=== PATIENT | female | born 1940 | race Caucasian/White ===

== ENCOUNTER 2017-10-14 13:00 | Emergency (ER) | payer OTHER ==
[~2017-10-14] VITALS: Ht 170.1 cm; Wt 97.5 kg
[~2017-10-14 13:00] MED LIST: ARTANE PO; ATOXIMETIN-B1 CAP PO; BAYER ASPIRIN C81 MG PO; MIRALAX POWDER17 G1 PO; MOBIC7.5 MG PO; NEURONTIN300 MG PO; PAXIL40 MG PO; PRILOSEC40 MG PO; SINEMET CR 50 M1 TE1 PO; SYNTHROID,LEV100 MCG PO; ZESTRIL20 MG PO
== END 2017-10-14 16:49 | disposition home or self-care (01) ==
LOC: ED 13:00
DX: K59.00 Constipation, unspecified (principal); Z88.1 Allergy status to other antibiotic agents; Z79.01 Long term (current) use of anticoagulants

== ENCOUNTER 2019-07-03 11:14 | Inpatient (IN) | payer OTHER ==
[~2019-07-03] VITALS: Ht 162.5 cm; Wt 78.2 kg
--- NOTE | ~2019-07-03 | CON ---
[place], [place] REPORT OF CONSULTATION NAME[id number] UNIT #: [id number] ROOM: 419 DOCTOR: LINH LICONA DPM BIRTHDATE: [birth year] DOS: 07/04/2019 SUBJECTIVE: This patient is seen for evaluation of multiple wounds on both feet. The patient was seen by Wound Care. The patient does not answer questions. She has altered mental status at this time. PAST MEDICAL HISTORY: Positive for chronic pain, hypertension, hypothyroidism, neuropathy, Parkinson's disease, dementia. ALLERGIES: COUMADIN, AMPICILLIN and FLAGYL. CURRENT MEDICATIONS: Include Zoloft, Paxil, Zestril, Lovenox, Wellbutrin, Prilosec, Synthroid, Artane, Seroquel, Neurontin, Comtan, Sinemet, Rocephin, and Restoril. OBJECTIVE: Upon lower extremity physical examination, DP and PT pedal pulses are barely palpable. There is decreased hair growth noted. Skin is thin and shiny. Very mild dependent edema noted bilaterally. Negative Homans sign noted. Sensation appears to be grossly intact and symmetrical. There are multiple superficial open areas noted on both feet. She has a wound on the right second toe, lateral right foot, as well as left first toe. These are all very superficial with some dry skin noted in the area. There is a wound noted dorsal left second toe that is full thickness with no signs of infection. There is no edema or erythema about the toe. No purulent drainage or malodor, no signs of abscess. Vascular studies are pending. X-ray is pending. ASSESSMENT: Multiple ulcerations bilaterally, peripheral artery disease. PLAN: Consult is performed. Agree with wound care recommendations, do daily dressing changes, offload appropriately. We will continue to monitor and follow while in the hospital. We will check and see how her studies come back. Thank you for the opportunity to take part in care of this patient. LINH MARILYN LICONA CM:CONSTR:REPORT OF CONSULTATION 1149 07/04/19 5200 interface
--- NOTE | ~2019-07-03 | EKG ---
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
[2019-07-03 11:16] VITALS: BP 109/44
--- NOTE | 2019-07-03 11:31 | NUR ---
PATIENT STRAIGHT CATHED FOR URINE SPECIMEN. PATIENT HAD ABOUT 300ML OF URINE OUTPUT WITH STRONG ODOR AND DARK SHAYNA COLORED URINE.
[2019-07-03 11:32] LABS: BILIRUBIN NEGATIVE (NEGATIVE); BLOOD NEGATIVE (NEGATIVE); CLARITY CLOUDY (CLEAR); COLOR YELLOW (YELLOW); GLUCOSE NEGATIVE (NEGATIVE); KETONE NEGATIVE (NEGATIVE); LEUKO ESTERASE TRACE (NEGATIVE); NITRITE POSITIVE (NEGATIVE); UROBILINOGEN 0.2 E.U./dl (0.2-1.0)
[2019-07-03 11:49] LABS: BACTERIA 4+; WBC 31-40 wbc/hpf (0-5)
[2019-07-03 11:49] LABS: BASO # 0.1 10*3/uL (0.0-0.1); BASO % 0.8 % (0.0-1.0); EOS # 0.2 10*3/uL (0.0-0.4); HEMATOCRIT 39.3 % (37.0-47.0); HEMOGLOBIN 12.3 g/dl (12.0-16.0); LYMPH # 1.3 10*3/uL (1.3-4.4); LYMPH % 17.9 % (27.0-41.0); MEAN CELL VOLUME 86.6 fl (81.0-99.0); MEAN CORPUSCULAR HGB 27.1 pg (27.0-31.0); MEAN CORPUSCULAR HGB CONC 31.3 g/dl (33.0-37.0); MONO # 0.8 10*3/uL (0.1-1.0); MONO % 10.7 % (3.0-9.0); NEUT % 68.5 % (47.0-73.0); PLATELET COUNT AUTOMATED 220 10*3/uL (130-400); RED BLOOD COUNT 4.54 10*6/uL (4.10-5.10); RED CELL DISTRI WIDTH 17.8 % (0-14.5); WHITE BLOOD COUNT 7.4 10*3/uL (4.8-10.8)
[2019-07-03 12:06] LABS: ALBUMIN 3.1 gm/dl (3.1-4.5); ALKALINE PHOSPHATASE 180 U/L (45-117); BUN 15 mg/dl (7-24); CHLORIDE 105 mmol/L (98-107); CREATININE 1.07 mg/dL (0.55-1.02); SGOT/AST 24 IU/L (3-35); SGPT/ALT 9 U/L (12-78); SODIUM 140 mmol/L (136-145); TOTAL PROTEIN 7.4 gm/dL (6.4-8.2)
[2019-07-03 12:08] LABS: TROPONIN I < 0.015 ng/ml (<0.045)
--- NOTE | 2019-07-03 15:00 | NUR ---
A 78, admitted to , under the services of QUYNH Reyes DO with a diagnosis of UTI. Chief complaint is MENTAL STATUS CHANGE, UTI. Patient arrived via stretcher from ER. Monitor applied. Initial assessment completed. Vital signs taken and recorded. QUYNH REYES DO notified of admission to the unit. Orders received. See assessment for past medical history, medications and allergies. Patient and/or family oriented to unit. [address] visitation policy reviewed. Clothing/patient valuable form completed. JUSTINO CASE
--- NOTE | 2019-07-03 15:30 | NUR ---
PT VERY COMBATIVE AT THIS TIME, KICKING AND PUNCHING. THIS NURSE UNABLE TO ASSESS LEFT 2ND TOE WOUND AT THIS TIME. BANDAID IN PLACE
--- NOTE | 2019-07-03 15:56 | NUR ---
[facility] CALLED MED REC TO BE FAXED.
[2019-07-03 16:00] VITALS: BP 136/66
--- NOTE | 2019-07-03 16:02 | NUR ---
DR RUSS NOTIFIED ABOUT PT REFUSAL OF WEARING MONITOR AND BEING VERY COMBATIVE DURING ADMISSION PROCESS. PT NOW SLEEPING IN BED. MOVED TO PRIVATE ROOM CLOSER TO THE NURSES STATION. BED ALARM ON. WILL MONITOR.
--- NOTE | 2019-07-03 16:20 | NUR ---
PT REFUSES THE FLU VACCINE
--- NOTE | 2019-07-03 16:35 | NUR ---
PER PT . PT HAVE [facility]
[2019-07-03] MEDS ORDERED: LEVOXYL112 MCG PO (16:38)
[2019-07-03] MEDS ORDERED: K-TAB10 MEQ PO (16:39)
[2019-07-03] MEDS ORDERED: CARBIDOPA-LEVO1 EAC2 PO (16:40)
[2019-07-03] MEDS ORDERED: ZOLOFT50 MG PO (16:41)
[2019-07-03] MEDS ORDERED: SEROQUEL25 MG PO (16:42)
[2019-07-03] MEDS ORDERED: BUPROPION75 MG PO (16:44)
--- NOTE | 2019-07-03 16:47 | NUR ---
MED REC UPDATED PER FAX FROM [facility]. DR RUSS NOTIFIED.
--- NOTE | 2019-07-03 18:31 | NUR ---
DR RUSS NOTIFIED OF RIGHT FOOT 2ND DIGIT WOUND. ORDERS RECEIVED FOR PODITARY CONSULT
--- NOTE | 2019-07-03 18:35 | NUR ---
PODITARY RESIDENT CALLED, NO ANSWER. LEFT VOICEMAIL FOR RETURN CALL RE: CONSULT.
--- NOTE | 2019-07-03 19:00 | NUR ---
DR MELTON CALLED UNIT, NOTIFIED OF CONSULT.
[2019-07-04 04:00] VITALS: BP 129/96
[2019-07-04 06:00] LABS: BASO # 0.1 10*3/uL (0.0-0.1); BASO % 0.6 % (0.0-1.0); EOS # 0.3 10*3/uL (0.0-0.4); EOS % 2.8 % (1.0-4.0); HEMATOCRIT 41.1 % (37.0-47.0); HEMOGLOBIN 12.6 g/dl (12.0-16.0); LYMPH # 1.8 10*3/uL (1.3-4.4); LYMPH % 18.3 % (27.0-41.0); MEAN CELL VOLUME 87.6 fl (81.0-99.0); MEAN CORPUSCULAR HGB 26.9 pg (27.0-31.0); MEAN CORPUSCULAR HGB CONC 30.7 g/dl (33.0-37.0); MEAN PLATELET VOLUME 11.2 fl (9.6-12.3); MONO # 1.1 10*3/uL (0.1-1.0); MONO % 10.8 % (3.0-9.0); NEUT # 6.5 10*3/uL (2.3-7.9); NEUT % 67.1 % (47.0-73.0); PLATELET COUNT AUTOMATED 238 10*3/uL (130-400); RED BLOOD COUNT 4.69 10*6/uL (4.10-5.10); RED CELL DISTRI WIDTH 18.2 % (0-14.5); WHITE BLOOD COUNT 9.7 10*3/uL (4.8-10.8)
[2019-07-04 06:14] LABS: ALBUMIN 3.1 gm/dl (3.1-4.5); CREATININE 1.15 mg/dL (0.55-1.02); FREE T4 0.97 ng/dl (0.76-1.46); PHOSPHOROUS 3.5 mg/dL (2.5-4.9); POTASSIUM 4.3 mmol/L (3.5-5.1); TOTAL PROTEIN 7.5 gm/dL (6.4-8.2)
[2019-07-04 06:18] LABS: THYROID STIM HORMONE (HS) 0.904 uIU/ml (0.358-4.75)
[2019-07-04 06:23] LABS: ACT PARTIAL THROMBO TIME 27.8 SECONDS (20.0-32.1)
--- NOTE | 2019-07-04 07:00 | NUR ---
ARRIVED ON SHIFT, INTRODUCED TO PATIENT, BEDSIDE REPORT RECEIVED, NO NEEDS VOICED AT THIS TIME/ WHITE BOARD UPDATED.
--- NOTE | 2019-07-04 07:32 | NUR ---
Shift chart check completed.
--- NOTE | 2019-07-04 07:56 | NUR ---
VINCENT MELTON [id number] Please refer to the physician's history and physical for past medical history, comorbid conditions, and allergies. Diagnosis: UTI ACUTE METABOLIC ENCEPHALOPATHY Michael Score: 11,HIGH RISK WOUND DESCRIPTIONS: Wound Number: 1 Location of the wound: right lateral aspect of foot Type of wound: unstageable Thickness: Full Size: 0.5cm x 0.6cm x <0.1cm Tunneling: none Undermining: none Sinus Tract: nopne Presence of Exudate: none Amount: None Color: Brown, yellow Odor: None Periwound Skin Appearance: Normal Wound edges: approximated Pain (associated with wound): none at time of assessment How does patient state this happened? pt unable to state how this happened Wound Number: 2 Location of the wound: right 3rd toe Type of wound: unstageable Thickness: Full Size: 0.4cm x 0.6cm x <0.1cm Tunneling: none Undermining: none Sinus Tract: nopne Presence of Exudate: none Amount: None Color: Brown, yellow, red Odor: None Periwound Skin Appearance: Normal Wound edges: erythema Pain (associated with wound): none at time of assessment How does patient state this happened? pt unable to state how this happened Wound Number: 3 Location of the wound: right plantar aspect of toe Type of wound: unstageable Thickness: Full Size: 0.3cm x 0.6cm x <0.1cm Tunneling: none Undermining: none Sinus Tract: nopne Presence of Exudate: none Amount: None Color: Brown, yellow Odor: None Periwound Skin Appearance: Normal Wound edges: approximated Pain (associated with wound): none at time of assessment How does patient state this happened? pt unable to state how this happened Wound Number: 4 Location of the wound: right 2nd toe Type of wound: unstageable Thickness: Full Size: 0.5cm x 0.3cm x <0.1cm Tunneling: none Undermining: none Sinus Tract: nopne Presence of Exudate: none Amount: None Color: Brown, yellow Odor: None Periwound Skin Appearance: Normal Wound edges: approximated Pain (associated with wound): none at time of assessment How does patient state this happened? pt unable to state how this happened Wound Number: 5 Location of the wound: right heel Type of wound: unstageable Thickness: Full Size: 1.2cm x 0.5cm x <0.1cm Tunneling: none Undermining: none Sinus Tract: none Presence of Exudate: none Amount: None Color: Brown Odor: None Periwound Skin Appearance: Normal Wound edges: approximated Pain (associated with wound): none at time of assessment How does patient state this happened? pt unable to state how this happened Wound Number: 6 Location of the wound: left great toe Type of wound: unstageable Thickness: Full Size: 1.5cm x 1.2cm x <0.1cm Tunneling: none Undermining: none Sinus Tract: none Presence of Exudate: none Amount: None Color: Brown, yellow Odor: None Periwound Skin Appearance: Normal Wound edges: approximated Pain (associated with wound): none at time of assessment How does patient state this happened? pt unable to state how this happened Wound Number: 7 Location of the wound: left 2nd toe Type of wound: unstageable Thickness: Full Size: 1.5cm x 1.2cm x <0.1cm Tunneling: none Undermining: none Sinus Tract: none Presence of Exudate: none Amount: None Color: Brown, yellow Odor: None Periwound Skin Appearance: Normal Wound edges: approximated Pain (associated with wound): none at time of assessment How does patient state this happened? pt unable to state how this happened Surface the patient is resting on: Isoflex SKIN PREVENTION RECOMMENDATION: 1. Pressure redistribution support surface as appropriate 2. Elevate heels 3. Remove boots/TEDS every shift and reapply 4. Head of bed 30 degrees as tolerated 5. Assess nutrition and hydration 6. Manage moisture 7. Avoid the use of containment devices while in bed 8. Use absorptive products on surfaces limit layers of linens on bed 9. Turn and reposition every 1-2 hours in bed and every 1 hour in chair as tolerated 10. Weight shifts every 15 minutes while up in chair 11. Offloading with pillows or device to keep heels elevated off bed 12. Monitor skin at least every shift 13. Inspect under medical devices twice a day WOUND TREATMENT RECOMMENDATIONS: Heel raiser pro boots to bilateral heels while in bed. Cleanse right lateral apect of foot, right 3rd toe, right plantar aspect of foot, right 2nd toe, right heel, left great toe and left 2nd toe with betadine and cover with dsd daily and prn for soiling. Podiatry is already on consult. Imaging studies of right foot due to non-healing wound. Venous and arterial studies to bilateral feet.
[2019-07-04 08:00] VITALS: BP 116/64
[2019-07-04 08:05] LABS: VITAMIN D, 25-HYDROXY 27.4 ng/mL (30-100)
--- NOTE | 2019-07-04 09:00 | NUR ---
case management visits with patient, patient was very agitated and combative with staff. unable to carry on a complete conversation, will contact family regarding discharge plans
--- NOTE | 2019-07-04 11:52 | NUR ---
Jelena YANES notified of wound care recommendations.
[2019-07-04 12:00] VITALS: BP 100/53
--- NOTE | 2019-07-04 13:00 | NUR ---
COMPLETE CARE COMPLETED ON PATIENT AT THIS TIME, BRIEF WAS SATURATED, FOUL SMELLING URINE. PATIENT YELLED AT STAFF AND SQUEEZED AID HANDS, NO INJURY NOTED TO STAFF. PATIENT CLAMED DOWN AFTER CARE. WILL AVERY TO MONITOR.
--- NOTE | 2019-07-04 14:00 | NUR ---
PATIENT PLEASANT AT THIS TIME. PATIENT TOOK ALL MEDICATION WHOLE. WILL MONITOR
[2019-07-04 16:00] VITALS: BP 132/97
--- NOTE | 2019-07-04 16:01 | NUR ---
Nursing screen received and chart reviewed. Patient admitted with UTI and mental status changes with behavioral changes also. At this time, patient not appropriate for OT. Thank you. Noa Ocampo OTR/L
[2019-07-04 20:00] VITALS: BP 109/54
--- NOTE | 2019-07-04 20:00 | NUR ---
COMPLETED PATIENT CARE COMLETED, BRIEF SATURATED, NOTED VERY SMALL BM. PATIENT TOLERATED WELL, CALM.
--- NOTE | 2019-07-04 21:00 | NUR ---
PATIENT IS PLEASANT AT THIS TIME, TOOK MEDICATIONS WHOLE.
--- NOTE | 2019-07-05 02:45 | NUR ---
24 HR chart check completed.
[2019-07-05 06:37] LABS: ALBUMIN 2.7 gm/dl (3.1-4.5); BUN 11 mg/dl (7-24); CHLORIDE 110 mmol/L (98-107); CREATININE 0.81 mg/dL (0.55-1.02); PHOSPHOROUS 2.8 mg/dL (2.5-4.9); POTASSIUM 3.5 mmol/L (3.5-5.1); SODIUM 143 mmol/L (136-145)
[2019-07-05 08:00] VITALS: BP 119/52
--- NOTE | 2019-07-05 08:36 | NUR ---
Patient resting quietly with no c/o discomfort. Respirations easy and regular. Vital signs stable. No overt distress. Continue to monitor pt. MARAL ASHLEY
--- NOTE | 2019-07-05 10:00 | NUR ---
PT DID NOT EAT ANY BREAKFAST. SHE DID NOT LIKE THE YAKUT TOAST,SADLER,SAUSAGE,OR CREAM OF WHEAT. WILL ATTEMPT SOFTER FOOD AT LUNCH TIME. PT DID STATE THAT SHE LIKES CHOCOLATE PUDDING SO THIS WILL BE ORDERED FOR LUNCH. CONTINUE TO MONITOR THE PT.
--- NOTE | 2019-07-05 11:09 | NUR ---
UPDATED NASIM FONTANEZ, ABOUT PT'S FOOD INTAKE FOR BREAKFAST WELL LUNCH PLAN. NO NEW ORDERS. CONTINUE TO MONITOR THE PT.
[2019-07-05 12:00] VITALS: BP 102/65
--- NOTE | 2019-07-05 12:14 | NUR ---
PHYSICAL THERAPY PATIENT SCREENED TODAY BY THIS PT AND SPOKE WITH NURSING WHO RECOMMENDS NO PT TODAY. WILL ATTEMPT AGAIN TOMORROW. THANKS KENNY MONTALVO PT
--- NOTE | 2019-07-05 12:49 | NUR ---
PT IS REFUSING TO EAT LUNCH. ORDERED MASHED POTATOES, CHOCOLATE PUDDING, TOAST, AND GRAPE JUICE. MULTIPLE ATTEMPTS TO FEED PT. NO INTAKE. PT DID GET AGITATED WHEN ATTEMPTING TO OFFER FOOD. CONTINUE TO MONITOR THE PT.
--- NOTE | 2019-07-05 13:31 | NUR ---
PT'S AT BEDSIDE. HE WAS ABLE TO GET THE PT TO EAT ABOUT 2 OZ OF PUDDING BUT THEN PT REFUSED ANY FURTHER FOOD. HE IS IN THE PROCESS OF OBTAINING MEDICAL POA. IS AGREEABLE TO HAVE PT SENT TO U WHEN MEDICALLY CLEARED. QUESTIONS ANSWERED AT THIS TIME. CONTINUE TO MONITOR THE PT.
--- NOTE | 2019-07-05 15:28 | NUR ---
COMES TO DESK AND INFORMS MYSELF THAT HE DOES HAVE MEDICAL POA OVER PT. HE STATES THAT HE OBTAINED THAT AT [place] WHEN THEY WERE THERE LAST. HE DOES NOT HAVE A COPY OF THAT WITH HIM BUT STATES THAT HE COULD CALL THEM TO GET A COPY FOR US.
[2019-07-05 16:00] VITALS: BP 141/83
--- NOTE | 2019-07-05 16:29 | NUR ---
TYRESE JOHNSON INFORMED THAT MULITPLE ATTEMPT MADE TO CALM PATIENT DOWN, PATIENT TEARFUL AND CRYING, ATTEMPTS UNSUCCESSFUL. STATED SHE WILL PLACE ORDER.
--- NOTE | 2019-07-05 16:36 | NUR ---
PATIENT MEDICATED WITH IM GEODON FOR SEVERE AGGITATION AND YELLINH OUT. WILL CONTINUE TO MONITOR
--- NOTE | 2019-07-05 17:25 | NUR ---
GEODON APPEARS EFFECTIVE, PATIENT IS CALM AT THIS TIME. SILENTLY WATVCHING TV, NO LONGER YELLING OUT. WILL CONTINUE TO MONITOR
--- NOTE | 2019-07-05 18:00 | NUR ---
ATTEMPTS TO CALL RADIOLOGY IN REGARDS TO TEST ORDERED, NO ANSWER. WILL ATTEMPT AT A LATER TIME
--- NOTE | 2019-07-05 19:00 | NUR ---
WAS ABLE TO GET PATIENT TO EAT. PATIENT ATE 75% OF HER MEAL WHICH CONSISTED OF MEATLOAF, MASHED POTATOES, ROLL, SALAD AND CHOCOLATE MILK.
[2019-07-05 20:00] VITALS: BP 108/59
--- NOTE | 2019-07-05 20:35 | NUR ---
PATIENT PLEASANT AT THIS TIME, WATCHING TV. PATIENT ALLOWED US TO GET VITAL SIGNS W/O COMPLICATION.
--- NOTE | 2019-07-06 01:35 | NUR ---
RESTLESS. RESTORIL GIVEN FOR INSOMNIA.
--- NOTE | 2019-07-06 02:30 | NUR ---
RESTORIL INEFFECTIVE FOR SLEEP. PATIENT STILL AWAKE.
--- NOTE | 2019-07-06 03:22 | NUR ---
24 HR chart check completed.
--- NOTE | 2019-07-06 03:30 | NUR ---
PATIENT HAD PULLED WATER PITCHER OFF OF TRAY TABLE AND SPILT ALL IN BED. BED LINENS CHANGED. PATIENT WAS GETTING AGGITATED YELLING AND WANTING TO HURT SOMEONE. PATIENT SETTLED DOWN ONCE HER BED LINENS WERE CHANGED.
--- NOTE | 2019-07-06 06:32 | NUR ---
ATTEMPTED TO GIVEN MORNING PO MEDICATIONS PATIENT AGGITATED AND UNABLE TO GIVE PO MEDICATION SAFELY AT THIS TIME. WILL CONT. TO TRY.
--- NOTE | 2019-07-06 07:30 | NUR ---
24 HOUR CHART CHECK COMPLETED
--- NOTE | 2019-07-06 07:42 | NUR ---
UNABLE TO GIVEN PO MEDICINE THIS AM TRIED AGAIN AND PT. REFUSED TO TAKE MEDICINE. TRIED DIFFERENT METHODS AND PATIENT BECAME MORE AGGITATED.
--- NOTE | 2019-07-06 08:00 | NUR ---
PATIENT ASSESSMENT COMPLETED AT THIS TIME, PATIENT IS AGGITATED AND AGGRESSIVE AT THIS TIME. REFUSED VITAL SIGNS AT THIS TIME, SWINGING AT PATIENT ATTENDANT AND RN. REFUSED TO TAKE MEDICATION ORALLY OR DRINK AT THIS TIME. SIDERAILS UP TIMES 4 FOR PATIENT PROTECTION. PATIENT INCONTINENT OF BOWEL AND BLADDER, CHANGED AT THIS TIME. CALL LIGHT WITHIN REACH, REINFORCED ITS USE WITH PATIENT. SRINI PLASCENCIA IN TO SEE PATIENT, ORDERS RECEIVED.
--- NOTE | 2019-07-06 08:30 | NUR ---
PATIENT REFUSED TO TAKE ALL AM MEDS AT THIS TIME, COMBATIVE, SWINGING AT THIS RN, VERBALLY AGGRESSIVE. SEE EMAR FOR MEDICATIONS. LOVENOX SHOT HELD AT THIS TIME FOR ABOVE REASON.
[2019-07-06] MEDS ORDERED: VITAMIN D32000 UNI1 PO (10:06)
--- NOTE | 2019-07-06 12:16 | NUR ---
PHYSICAL THERAPY PATIENT BEING TRANSFERRED TO [facility] TODAY PER NURSING: WILL NEED NEW REFERRAL FOR PT. THANK YOU FOR REFERRAL KENNY MONTALVO PT
[2019-07-06] MEDS ORDERED: COMTAN200 MG PO (12:18)
--- NOTE | 2019-07-06 12:45 | NUR ---
PATIENT LEFT THE FLOOR VIA [facility] CHAIR TRANSFER TO [facility] ESCORTED BY [facility] NURSE AND SECURITY. ALL DISCHARGE INFORMATION AND KARDEX GIVEN TO U NURSE AT THIS TIME.
== END 2019-07-06 12:45 | disposition home health service (06) | DRG 682 ==
LOC: ED 11:14 → 4E 12:28 → EDHOLD 12:28 → 4E 12:52
PROVIDERS: Emergency Medicine; Internal Medicine; Registered Nurse; ADMIT Family Medicine
DX: N17.0 Acute kidney failure with tubular necrosis (principal); G93.41 Metabolic encephalopathy; N39.0 Urinary tract infection, site not specified; F02.81 Dementia in other diseases classified elsewhere, unspecified severity, with behavioral disturbance; E44.0 Moderate protein-calorie malnutrition; L97.929 Non-pressure chronic ulcer of unspecified part of left lower leg with unspecified severity; L97.919 Non-pressure chronic ulcer of unspecified part of right lower leg with unspecified severity; F23 Brief psychotic disorder; G20 Parkinson's disease; G89.29 Other chronic pain; I10 Essential (primary) hypertension; E03.9 Hypothyroidism, unspecified; G62.9 Polyneuropathy, unspecified; D72.810 Lymphocytopenia; E86.0 Dehydration; E83.41 Hypermagnesemia; E80.6 Other disorders of bilirubin metabolism; R74.0 Nonspecific elevation of levels of transaminase and lactic acid dehydrogenase [LDH]; K59.00 Constipation, unspecified; F63.81 Intermittent explosive disorder; M20.42 Other hammer toe(s) (acquired), left foot; E55.9 Vitamin D deficiency, unspecified; B96.20 Unspecified Escherichia coli [E. coli] as the cause of diseases classified elsewhere; I73.9 Peripheral vascular disease, unspecified; Z88.8 Allergy status to other drugs, medicaments and biological substances; Z79.899 Other long term (current) drug therapy; Z79.82 Long term (current) use of aspirin; Z90.49 Acquired absence of other specified parts of digestive tract; Z98.49 Cataract extraction status, unspecified eye; Z90.711 Acquired absence of uterus with remaining cervical stump; Z68.29 Body mass index [BMI] 29.0-29.9, adult

== ENCOUNTER 2019-07-06 10:52 | Inpatient (IN) | payer OTHER ==
[~2019-07-06] VITALS: Wt 63.5 kg
--- NOTE | ~2019-07-06 | PR ---
[place], [place] PROGRESS NOTE NAME: VINCENT MELTON UNIT #: [id number] ROOM: 311 DOCTOR: JEANETH GOMEZ MD BIRTHDATE: [birth year] DOS: 07/08/2019 CHIEF COMPLAINT: "Yeah, the boys are over there, why don't she will go ahead and get them." SUMMARY OF THE VISIT: The patient was interviewed as she was resting quietly in a Richa chair. She had already eaten her breakfast. She remains grossly confused and disorganized and her thoughts are rambling and disorganized. Her responses more often than were inappropriate. She was pleasant however and there was no agitation or aggression. MENTAL STATUS: She is alert and oriented to self only. Thoughts are disjointed and fragmented. Speech rate and pattern is choppy and at times, there is a great deal of processing slowness and even then when she converses, it is disorganized and disoriented. Short-term memory is very poor. PLAN: I will go ahead and increase the Exelon patch from 4.6 to 9.5 mg a day in an effort to impact positively on ADL maintenance, behavior and cognition. We will maintain her Namenda dose. We will continue her other psychotropics, engage in individual and hansen milieu activity, returning to the least restrictive environment when psychiatrically stable. JEANETH GOMEZ MD CM:PNTRANS [id number] JEANETH GOMEZ MD 07/08/19 1309 interface
--- NOTE | ~2019-07-06 | WRIGHTHP ---
[place], [place] PATIENT HISTORY AND PHYSICAL EXAM NAME: VINCENT MELTON UNIT #: [id number] ROOM: 311 DOCTOR: JEANETH GOMEZ MD BIRTHDATE: [birth year] DOS: 07/07/2019 INITIAL PSYCHIATRIC EVALUATION CHIEF COMPLAINT: "I am here because I stepped on the cat." HISTORY OF PRESENT ILLNESS: This is a 78-year-old white female who was initially admitted to the medical floor due to a change in mental status. While evaluated there, she was found to be experiencing both visual and auditory hallucinations and was very repetitive with her speech. She was very confused and agitated. Her felt that this was a substantial change in her overall behavior and was very concerned for her. Because of the significant change in her behavior and the fact that she was physically and verbally abusive towards others, an inpatient stay at the [facility] was warranted. PAST MEDICAL HISTORY: Remarkable for Parkinson's disease, neuropathy, depression, hypertension, hypothyroidism. ALLERGIES: She lists allergies to AMPICILLIN, FLAGYL and WARFARIN. SOCIAL HISTORY: She does not smoke cigarettes, drink alcohol or use illicit drugs. STRENGTHS: Supportive family, good verbal skills. WEAKNESSES: Poor coping skills, cognitive decline. MENTAL STATUS: The patient is alert and oriented to self only. She is rather confused and disoriented. Her responses are short, simple and oftentimes very inappropriate to the question asked of her. There is no hypomania or erlin, but there is the presence of significant hallucinations. DIAGNOSIS: Major depression, recurrent with psychotic features. PLAN: I will go ahead and continue to titrate her Namenda upwards, bringing it from 5 mg a day to 5 mg twice a day. I will add Remeron 15 mg at bedtime to aide sleep, improve appetite and also improve parkinsonian symptoms. We will maintain Seroquel for now. I will need to explore with case management whether or not her insurance will pay for a Nuplazid when she goes home. If this is the case, I will go ahead and see if I can obtain Nuplazid for her and discontinue the Seroquel. We will engage in individual and hansen milieu activity, returning to the least restrictive environment when psychiatrically stable. [place], [place] PATIENT HISTORY AND PHYSICAL EXAM NAME: VINCENT MELTON UNIT #: [id number] ROOM: [facility] DOCTOR: JEANETH GOMEZ MD BIRTHDATE: [birth year] JEANETH GOMEZ MD CM:HISPHYS:PATIENT HISTORY AND PHYSICAL EXAMINATION 6 2 JEANETH GOMEZ MD 07/07/19931 interface
--- NOTE | ~2019-07-06 | DS ---
[place], [place] DISCHARGE SUMMARY NAME: VINCENT MELTON UNIT #: [id number] ROOM: 311 DOCTOR: JEANETH GOMEZ MD BIRTHDATE: [birth year] DOS: 07/10/2019 CHIEF COMPLAINT: "I am here because I stepped on the cat." HISTORY OF PRESENT ILLNESS: This is a 78-year-old white female who was initially admitted to the medical floor due to a change in mental status. While evaluated there, she was found to be experiencing both visual and auditory hallucination and was very repetitive with her speech. She was both confused and agitated. Her felt that this was a substantial change in her overall behavior and was very concerned and requested that a U admission be arranged. She was admitted to rule out any organic factors and to attempt her stabilize on medication, returning to the least restrictive environment when psychiatrically stable. SUMMARY OF HOSPITAL COURSE: The patient was admitted to the psychiatric unit where Remeron 15 mg at bedtime was added to improve sleep and appetite and combat depressive symptomatology. Her Namenda dose, which was at 5 mg a day was increased to 5 mg twice a day and subsequently before discharge, increased to 10 mg twice a day with good result. She was placed on Seroquel while on the medical floor. The timing of the doses was changed as she tended to in early afternoon, so the doses were changed to meet this need and worked very well. Exelon patch was also started at 4.6 mg a day to improve ADL maintenance, behavior and cognition. Ultimately, the Exelon patch was increased to 9.5 mg a day again with good results. With this combination of medications in place, it was felt that she could return safely home. In-home services were arranged to assist the in taking care of her and to meet her needs. She will follow up in my office as well. MENTAL STATUS AT DISCHARGE: She is alert and oriented to person, possibly place, but not to time. Mood for the most part is euthymic. There was no mood lability, no hypomania, erlin or psychosis. Short term memory is very poor and she processes slowly. DIAGNOSES: Major depression, recurrent with psychotic features, Alzheimer's dementia. DISPOSITION: The patient is returning home. All of her prescriptions have been e-scribed to [facility]. At the time of discharge, she was medically and psychiatrically stable and followup was arranged psychiatrically in my office in [place], [place]. [place], [place] DISCHARGE SUMMARY NAME: VINCENT MELTON UNIT #: [id number] ROOM: [facility] DOCTOR: JEANETH GOMEZ MD BIRTHDATE: [birth year] JEANETH GOMEZ MD CM:DISCHRAS [id number] JEANETH GOMEZ MD 07/10/19 1027 interface
--- NOTE | ~2019-07-06 | PR ---
[place], [place] PROGRESS NOTE NAME: VINCENT MELTON UNIT #: [id number] ROOM: 311 DOCTOR: JEANETH GOMEZ MD BIRTHDATE: [birth year] DOS: 07/09/2019 CHIEF COMPLAINT: The patient spoke word "salad." SUMMARY OF THE VISIT: The patient was attempted to be interviewed as she was reclining in a Richa chair. She had initially refused her breakfast. She was alert and did maintain eye contact. Her responses, however, made no sense and it was basically word salad and gibberish. She was not agitated or aggressive in any way. Nurses do note that she tends to sundown around 1-2 o'clock in the afternoon and becomes very combative at that point in time. MENTAL STATUS: She is alert and oriented to self only. Mood does seem to be fairly euthymic. Affect is inappropriate. Her thoughts are disjointed and fragmented as is her speech. There is no agitation or aggression. No erlin, hypomania or psychosis. Memory is very poor. PLAN: I will go ahead and max out her dose of Namenda, bringing the dose to 10 mg twice daily. I will change the timing of her Seroquel from b.i.d. to once in the morning and another dose around 1 p.m. to attempt to hold off the sundowning. We will engage in individual and hansen milieu activity, returning to the least restrictive environment when psychiatrically stable. JEANETH GOMEZ MD CM:PNTRANS [id number] JEANETH GOMEZ MD 07/09/19 1457 interface
[~2019-07-06 10:52] MED LIST changes: +BUPROPION75 MG PO; +CARBIDOPA-LEVO1 EAC2 PO; +K-TAB10 MEQ PO; +LEVOXYL112 MCG PO; +SEROQUEL25 MG PO; +VITAMIN D32000 UNI1 PO; +ZOLOFT50 MG PO
[2019-07-06] MEDS ORDERED: COMTAN200 MG PO (12:18)
[2019-07-06 13:40] VITALS: BP 139/85
--- NOTE | 2019-07-06 13:55 | NUR ---
DR. XIONG NOTIFIED OF NEW ADMISSION, MEDICATIONS AND DIAGNOSIS UPDATED FOR REVIEW. PATIENT WILL BE UNDER THE CARE OF DR FANNY YOST.
--- NOTE | 2019-07-06 14:39 | NUR ---
VINCENT MELTON a 78 year old F admitted via wheel chair from the OTHER as a emergency 72 hr. hold admission. Arrived on unit at 1252. ALLERGIES: . Vital signs are: 97.7-97-20 139/85. Admitted under the services of Dr. JASON EMERY,[facility]. A search was conducted and hazardous articles were removed. PT INVOLUNTARY FOR 72 HOURS, SPOUSE NOTIFIED OF ADMISSION. STATED HE HAS POA PAPER WORK FROM ANOTHER HOSPTIAL HE JUST DOESN'T HAVE IT WITH HIM. PT WAS COMBATIVE WITH HOC WITH INITIAL BODY ASSESSMENT. JARRED BEGUM
--- NOTE | 2019-07-06 15:00 | NUR ---
DR. XIONG NOTIFIED OF SKIN AREAS AND TREATMENT NEEDED OF LEFT FOOT.
--- NOTE | 2019-07-06 15:40 | NUR ---
Shift chart check completed.
--- NOTE | 2019-07-06 17:51 | NUR ---
P: RESISTIVE WITH HOC, GRABBING AT STAFF, YELLING OUT, RESTLESS, POOR WITH TRANSFERS I: TRANSFER WITH 3 ASSIST ATTEMPTED DENIS WITH POOR RESULTS DUE TO PT HAS INCREASED ANXIETY WITH THE MOTION. MUSIC, HOC, REDIRECT, CALM VOICES R: PT RESPONDED WELL TO MUSIC, RESTLESS IN BED, PT RESPONSIVE WITH STAFF INTERACTIONS. SHE CONTINUES TO GRAB AT STAFF AND USE NAILS TO DIG INTO ARMS WITH ROM. P: CONTINUE TO WORK WITH PT HOC, MEDICATION CHANGES AND EFFECTIVENESS, NO SI/HI NOTED PT DOES LAUGH AND TALK TO HERSELF OR UNSEEN OTHER AT TIMES.
[2019-07-06 20:24] VITALS: BP 113/70
--- NOTE | 2019-07-07 01:01 | NUR ---
P-RESTLESS, CONFUSION. I-PROVIDED 1:1 WITH THERAPEUTIC INTERVENTIONS. PROVIDE DIVERSION TECHNIQUES TO HELP CALM PATIENT. PRESENT REALITY AND REDIRECT NEEDED. ENCOURAGE MEDICATION COMPLIANCE. MONITOR SLEEP. R-PT UNRECEPTIVE TO INTERVENTIONS WHEN PRESENTED, ALERT TO SELF, CONFUSED. PT'S SPEECH NONSENSICAL WITH FOI. ALL NEEDS ANTICIPATED BY STAFF. PT CONTINUES TO GRAB BE RESISTIVE WITH CARE, X3 ASSIST DURING HOC AND TRANSFERS. MEDICATION COMPLIANT WITHOUT DIFFICULTY WHEN CRUSHED IN PUDDING. UNABLE TO PROVIDE EDUCATION DUE TO CONFUSION. VISUAL HALLUCINATIONS SUSPECTED PATIENT OBSERVED PICKING AND SWATTING AT THE AIR. PT VOICES NO SI/HI OR PAIN. PT CURRENTLY RESTING IN BED QUIETLY WITH EYES CLOSED, RESPIRATIONS EASY AND REGULAR, NO SIGNS OR SYMPTOMS OF DISTRESS NOTED. P-CONTINUE TO PRESENT REALITY AND REDIRECT. PROVIDE 1:1 WITH THERAPEUTIC INTERVENTIONS. ENCOURAGE MEDICATION COMPLIANCE AND EDUCATE. MAINTAIN Q 15 MIN CHECKS.
--- NOTE | 2019-07-07 05:55 | NUR ---
PATIENT OBSERVED ON Q 15 MIN CHECKS TO HAVE SLEPT APPROX 6 HOURS THIS SHIFT WITH NO AWAKENINGS OR SIGNS AND SYMPTOMS OF DISTRESS NOTED.
[2019-07-07 07:55] LABS: ALKALINE PHOSPHATASE 156 U/L (45-117); BUN 8 mg/dl (7-24); CHLORIDE 108 mmol/L (98-107); CHOLESTEROL 159 mg/dL (<200); CREATININE 0.88 mg/dL (0.55-1.02); HDL CHOLESTEROL 44 mg/dl (40-60); LDL CHOLESTEROL 94 mg/dL (9-159); SGOT/AST 22 IU/L (3-35); SGPT/ALT 13 U/L (12-78); SODIUM 142 mmol/L (136-145); TRIGLYCERIDES 103 mg/dl (<150); VLDL CHOLESTEROL 21 mg/dL (6-40)
--- NOTE | 2019-07-07 08:11 | NUR ---
Occupational therapy orders received as well as nursing screen. Will follow up with patient. Thank you. Naz Laboy, OTR/L
[2019-07-07 08:32] VITALS: BP 136/97
[2019-07-07 08:42] LABS: VITAMIN D, 25-HYDROXY 29.2 ng/mL (30-100)
--- NOTE | 2019-07-07 08:56 | NUR ---
SRINI PLASCENCIA ACCELERATOR SYSTEMS DIRECTOR NOTIFIED OF ABNORMAL LABS.
--- NOTE | 2019-07-07 09:12 | NUR ---
VINCENT MELTON [id number] Please refer to the physician's history and physical for past medical history, comorbid conditions, and allergies. Diagnosis: BRIEF PSYCHOTIC DISORDER Michael Score: 13,MODERATE RISK WOUND DESCRIPTIONS: Wound Number: 1 Location of the wound: right lateral aspect of foot Type of wound: unstageable Thickness: Full Size: 0.5cm x 0.6cm x <0.1cm Tunneling: none Undermining: none Sinus Tract: nopne Presence of Exudate: none Amount: None Color: Brown, yellow Odor: None Periwound Skin Appearance: Normal Wound edges: approximated Pain (associated with wound): none at time of assessment How does patient state this happened? pt unable to state how this happened Wound Number: 2 Location of the wound: right 3rd toe Type of wound: unstageable Thickness: Full Size: 0.4cm x 0.6cm x <0.1cm Tunneling: none Undermining: none Sinus Tract: nopne Presence of Exudate: none Amount: None Color: Brown, yellow, red Odor: None Periwound Skin Appearance: Normal Wound edges: closed, erythema Pain (associated with wound): none at time of assessment How does patient state this happened? pt unable to state how this happened Wound Number: 3 Location of the wound: right plantar aspect of toe Type of wound: stage 1 Thickness: Partial Size: 0.5cm x 0.6cm x <0.1cm Tunneling: none Undermining: none Sinus Tract: none Presence of Exudate: none Amount: None Color: Brown, yellow Odor: None Periwound Skin Appearance: Normal Wound edges: closed Pain (associated with wound): none at time of assessment How does patient state this happened? pt unable to state how this happened Wound Number: 4 Location of the wound: right 2nd toe red and blanchable Wound Number: 5 Location of the wound: right heel Type of wound: stage 1 Thickness: partial Size: 1.1cm x 0.3cm x <0.1cm Tunneling: none Undermining: none Sinus Tract: none Presence of Exudate: none Amount: None Color: Red Odor: None Periwound Skin Appearance: Normal Wound edges: closed Pain (associated with wound): none at time of assessment How does patient state this happened? pt unable to state how this happened Wound Number: 6 Location of the wound: left great toe Type of wound: unstageable Thickness: Full Size: 0.6cm x 1.5cm x <0.1cm Tunneling: none Undermining: none Sinus Tract: none Presence of Exudate: none Amount: None Color: Brown, yellow Odor: None Periwound Skin Appearance: Normal Wound edges: approximated Pain (associated with wound): none at time of assessment How does patient state this happened? pt unable to state how this happened Wound Number: 7 Location of the wound: left 2nd toe Type of wound: unstageable Thickness: Full Size: 1cm x 1.2cm x <0.1cm Tunneling: none Undermining: none Sinus Tract: none Presence of Exudate: purulent Amount: None Color: Brown, yellow Odor: None Periwound Skin Appearance: Normal Wound edges: approximated Pain (associated with wound): none at time of assessment How does patient state this happened? pt unable to state how this happened Bruising to bilateral hands noted at time of assessment. Surface the patient is resting on: Proform SKIN PREVENTION RECOMMENDATION: 1. Pressure redistribution support surface as appropriate 2. Elevate heels 3. Remove boots/TEDS every shift and reapply 4. Head of bed 30 degrees as tolerated 5. Assess nutrition and hydration 6. Manage moisture 7. Avoid the use of containment devices while in bed 8. Use absorptive products on surfaces limit layers of linens on bed 9. Turn and reposition every 1-2 hours in bed and every 1 hour in chair as tolerated 10. Weight shifts every 15 minutes while up in chair 11. Offloading with pillows or device to keep heels elevated off bed 12. Monitor skin at least every shift 13. Inspect under medical devices twice a day WOUND TREATMENT RECOMMENDATIONS: Unstagable guidelines to right lateral foot, right 3rd toe, left great toe, and left 2nd toe: Cleanse with nss apply sureprep around the wound allow to dry apply therahoney to wound bed and cover with DSD. Change every two days and prn soiling. Stage 1 guidelines to right plantar foot, right heel and right 2nd toe: Cleanse with nss apply sureprep around the wound allow to dry and cover with optifoam gentle, Change every two days and prn soiling. Heel raiser pro boots while laying down.
--- NOTE | 2019-07-07 10:24 | NUR ---
Treatment plan meeting held with Dr Amaral RN, SUPERVISOR COMMISSARY PRODUCTION-S, and design coordinator. Discharge date undetermined at this time. Plan is for pt to return home with home health services upon discharge.
--- NOTE | 2019-07-07 11:30 | NUR ---
Jelena YANES notified of wound care recommendations.
--- NOTE | 2019-07-07 11:39 | NUR ---
AM GROUP PT WAS PRESENT FOR MORNING GROUP THERAPY AND SAT AT THE TABLE WITH PEERS. PT WAS EXPOSED TO LIGHT THERAPY FOR 30 MINUTES. PT WAS HALLUCINATING BY REACHING FOR UNSEEN OBJECTS. PT SPEECH WAS NONSENSICAL. PT RESPONDED WELL TO THE BABY DOLL, CUDDLING IT AND TALKING TO IT. PT EXHIBITED NO AGGRESSIVE BEHAVIORS WHILE IN GROUP.
--- NOTE | 2019-07-07 13:46 | NUR ---
Met with patient and her Ulises. Ulises stated that he has left a message for eloisa Mao at [facility], requesting a copy of pt's DPOAHC papers. Pt has VNA and PT through [facility]. Plan is for pt to return home upon discharge.
--- NOTE | 2019-07-07 14:14 | NUR ---
PHYSICAL THERAPY Pt participating in activity and innapropriate per nursing staff. Will attempt later. Thank you Sherrie Wiseman, PT, DPT
--- NOTE | 2019-07-07 14:15 | NUR ---
Occupational therapy orders received and chart reviewed. Patient was in group activity upon arrival. Will follow up with patient for completion of OT eval. Thank you. Naz Laboy OTR/L
--- NOTE | 2019-07-07 15:40 | NUR ---
PM GROUP PT WAS PRESENT FOR AFTERNOON GROUP THERAPY SLEEPING RECLINED IN A ZAIRE CHAIR. PT DID NOT WAKE DURING GROUP.
--- NOTE | 2019-07-07 20:29 | NUR ---
EVENING/RELAXTION/STORY/MUSIC PT RESTING IN BED AT THIS TIME. PT WILL ATTEND FUTURE GROUP SESSIONS AND BE ENCOURAGED TO PARTICIPATE TO BEST OF PT ABILITY.
[2019-07-07 20:43] VITALS: BP 115/64
--- NOTE | 2019-07-07 21:37 | NUR ---
CALLED AND NOTIFIED OF PATIENT STILL NEEDING DOSE OF POTASSIUM DUE TO REFUSING ON PREVIOUS SHIFT. STATED HE WILL PUT THE ORDER IN. NO OTHER ORDERS RECEIVED.
--- NOTE | 2019-07-08 01:17 | NUR ---
P-CONFUSION, COMBATIVE WITH HOC I-PROVIDED 1:1 WITH THERAPEUTIC INTERVENTIONS. PRESENTED REALITY WITH REDIRECTION NEEDED. ENCOURAGE MEDICATION COMPLIANCE. MONITOR SLEEP. R-PT UNRECEPTIVE TO INTERVENTIONS WHEN PRESENTED, ALERT TO SELF, CONFUSED. PT'S SPEECH NONSENSICAL WITH FOI. ALL NEEDS ANTICIPATED BY STAFF. PT CONTINUES TO GRAB AND BE RESISTIVE WITH CARE, X3 ASSIST DURING HOC AND TRANSFERS. MEDICATION COMPLIANT WITHOUT DIFFICULTY, UNABLE TO PROVIDE EDUCATION DUE TO CONFUSION. PT VOICES NO SI/HI, HALLUCINATIONS, OR PAIN. NO NOTED RESPONDING TO INTERNAL STIMULI. PT REFUSING TO GO TO BED THIS HS, PT RESTING QUIETLY WITH EYES CLOSED ACROSS FROM NURSES STATION BY STAFF. RESPIRATIONS EASY AND REGULAR, NO SIGNS OR SYMPTOMS OF DISTRESS NOTED. P-CONTINUE TO PRESENT REALITY AND REDIRECT. PROVIDE 1:1 WITH THERAPEUTIC INTERVENTIONS. ENCOURAGE MEDICATION COMPLIANCE AND EDUCATE. MAINTAIN Q 15 MIN CHECKS.
--- NOTE | 2019-07-08 05:40 | NUR ---
24 HOUR CHART CHECK COMPLETED.
--- NOTE | 2019-07-08 06:27 | NUR ---
PATIENT OBSERVED ON Q 15 MIN CHECKS TO HAVE SLEPT APPROX 9 HOURS THROUGHOUT THE SHIFT UNINTERRUPTED. NO SIGNS OR SYMPTOMS OF DISTRESS NOTED.
[2019-07-08 08:07] VITALS: BP 138/79
--- NOTE | 2019-07-08 08:30 | NUR ---
Treatment Plan meeting with Dr. Amaral, RN, AT, SW and Supervisor Silvering Department. Plan for discharge next week. Pt. will return home with her at discharge.
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
--- NOTE | 2019-07-08 11:39 | NUR ---
AM GROUP PT WAS PRESENT FOR MORNING GROUP THERAPY SITTING IN A ZAIRE CHAIR. PT WAS VERY ALERT AND TALKATIVE AND SOMEWHAT AGITATED. PT SPEAKS IN WORD SALAD. PT WAS NOT AGGRESSIVE DURING GROUP. PT IS UNABLE TO PARTICIPATE AT THIS TIME DUE TO COGNITIVE IMPAIRMENT
--- NOTE | 2019-07-08 14:45 | NUR ---
Patient resting quietly with no c/o discomfort. Respirations easy and regular. Vital signs stable. No overt distress. GIVENS,LUIS ALBERTO
--- NOTE | 2019-07-08 15:54 | NUR ---
PM GROUP PT IS UNABLE TO ATTEND GROUP THERAPY AT THIS TIME DUE TO COGNITIVE IMPAIRMENT AND YELLING OUT. PT WAS IN ANDREWS IN FRONT OF NURSES STATION.
[2019-07-08 20:00] VITALS: BP 136/80
--- NOTE | 2019-07-08 20:28 | NUR ---
EVENING/BINGO/STORY PT NOT IN ATTENDANCE AT THIS TIME. PT RESTING IN ROOM.
--- NOTE | 2019-07-08 23:34 | NUR ---
24 HR chart check completed.
--- NOTE | 2019-07-09 05:41 | NUR ---
PT WAS VERY RESISTANT TO MOUTH CARE & HANDS ON CARE PRIOR TO GOING TO BED & CURSED AT STAFF. SLEPT PAST 2330. PLEASANT WITH STAFF THIS AM & ALLOWED HANDS ON CARE & MOUTH CARE.
[2019-07-09 07:33] LABS: ALKALINE PHOSPHATASE 161 U/L (45-117); BUN 8 mg/dl (7-24); CHLORIDE 109 mmol/L (98-107); CREATININE 0.88 mg/dL (0.55-1.02); POTASSIUM 4.1 mmol/L (3.5-5.1); SGOT/AST 49 IU/L (3-35); SGPT/ALT 13 U/L (12-78); SODIUM 143 mmol/L (136-145); TOTAL PROTEIN 7.2 gm/dL (6.4-8.2)
[2019-07-09 07:47] VITALS: BP 132/65
--- NOTE | 2019-07-09 08:30 | NUR ---
Treatment Plan meeting with Dr. Amaral, RN, AT, SW and Fitter/Welder. Plan for discharge Next week. Pt. will return home with her .
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
--- NOTE | 2019-07-09 11:51 | NUR ---
AM GROUP/MUSIC AND LIGHT THERAPY PT WAS PRESENT FOR MORNING GROUP THERAPY RECLINED IN A ZAIRE CHAIR AWAKE AND ALERT. PT WAS QUIET AND WADDING AND FOLDING HER BLANKET. PT EXPRESSED NO VISUAL HALLUCINATIONS OR AGGRESSION WHILE IN GROUP.
--- NOTE | 2019-07-09 12:17 | NUR ---
P: VERBAL AND PHYSICAL AGGRESSION TOWARD NURSE DURING INTERACTIONS AND PROVIDING MEDICATION. MOOD IS IRRITABLE. ATTEMPTING TO STRIKE NURSE. I: ONE ON ONE, REDIRECTIONS AND SPACE PROVIDED. R: PROVIDING SPACE EFFECTIVE. PATIENT WITH ALERT TO SELF WITH CONFUSION. LONG/SHORT TERM MEMORY DEFICITS. NO RESPONSE TO INTERNAL STIMULI OBSERVED. NON SENSICAL SPEECH WITH TALKING WITH PATIENT. NO VOICED STATEMENT OF HI/SI OR PAIN. MEDICATION COMPLAINT WITH MUCH ENCOURAGEMENT. Q 15 MINUTE SAFETY CHECKS MAINTAINED.2-3 PERSON ASSIST WITH ACTIVITIES OF DAILY LIVING, INCONTINENT OF BOWEL AND BLADDER. SET UP FOR MEALS, INTAKES VARY WITH ENCOURAGEMENT. PATIENT ABLE TO FEED SELF. TRANSFER VIA DENIS LIFT D/T NOT HELPING SELF AND REQUIRING EXTENSIVE FULL ASSIST, NOT BEARING WEIGHT FOR STAFF TO HELP TRANSFER. P: CONTINUE TO MONITOR FOR AGGRESSION, HALLUCINATIONS; PROVIDE ONE ONE ONE, REDIRECTION AND SPACE NEEDED.
--- NOTE | 2019-07-09 15:00 | NUR ---
Pt. will discharge to home with in the a.m. due to [place] Expiring and Pt. did not have documentation to Voluntarily Admit Patient. Pt. is Very Confused and is not able to sign herself into the Unit. Spoke with on the phone and he is comfortable with discharge. Pt. receives services in the home via the [facility] Twice a week for 3 hours. Pt. previously had [facility] also with Nurse and Physical Therapy. Pt. Requested [facility] to transport patient to home. Call Placed to [facility] and Arrangements made for Transportation with supervisor prep time 9:00 a.m. Nursing Staff notified of Calculating Machine Operator time.
--- NOTE | 2019-07-09 15:04 | NUR ---
SRINI PLASCENCIA CNP NOTIFIED OF PATIENT BEING DISCHARGED IN THE MORNING.
--- NOTE | 2019-07-09 15:36 | NUR ---
PM GROUP PT WAS PRESENT AT THE START OF GROUP, VERY AGITATED AND SPEAKING IN WORD SALAD. PT ATTEMPTED TO KICK ME I WALKED PAST. PT CONTINUED TO "RANT" AND WAS TAKEN TO A QUIET ROOM.
--- NOTE | 2019-07-09 15:54 | NUR ---
Shift chart check completed.
[2019-07-09 20:00] VITALS: BP 121/69
--- NOTE | 2019-07-09 20:24 | NUR ---
24 HR chart check completed.
--- NOTE | 2019-07-09 23:30 | NUR ---
PT WAS RESTING QUIETLY IN THE DINING ROOM IN A ZAIRE CHAIR WITH TRAY OFF. RESPONDS VERBALLY WHEN SPOKEN TO. COMPLIANT TAKING HS MEDICATIONS WHOLE & MIXED IN PUDDING. 2 STAFF ASSISTS REQUIRED. ALERT TO PERSON ONLY. NO AGITATION OR BEHAVIORS.
--- NOTE | 2019-07-10 05:56 | NUR ---
PT HAS SLEPT QUIETLY PAST 1999.
[2019-07-10 08:00] VITALS: BP 134/67
[2019-07-10] MEDS ORDERED: COMTAN200 MG PO (08:27)
[2019-07-10] MEDS ORDERED: REMERON15 M2 PO (08:27)
[2019-07-10] MEDS ORDERED: EXELON1 EAC1 T (08:27)
[2019-07-10] MEDS ORDERED: NAMENDA10 MG PO (08:28)
--- NOTE | 2019-07-10 09:13 | NUR ---
Late Entry: Spoke with pt's Ulises in the afternoon of 07/09/19. Explained to Ulises that [facility] has no documentation in pt's medical record for a DPOAHC or Surrogate. Further explained because a document cannot be produced that authorizes Ulises to sign pt's voluntary admission and pt does not meet criteria to probate, pt must be discharged. Ulises voiced understanding. Transportation by ambulance was not available until the AM of 07/10, so it was agreed that pt would remain in [facility] until ambulance transport.
[2019-07-10] MEDS ORDERED: RIVASTIGMINE1 EAC1 T (09:34)
[2019-07-10] MEDS ORDERED: MIRTAZAPINE15 M2 PO (09:34)
[2019-07-10] MEDS ORDERED: QUETIAPINE FUMA25 MG PO (09:34)
[2019-07-10] MEDS ORDERED: TRIHEXYPHENIDYL2 M3 PO (09:34)
[2019-07-10] MEDS ORDERED: MEMANTINE HCL10 MG PO (09:34)
--- NOTE | 2019-07-10 09:53 | NUR ---
PT DISCHARGED OFF UNIT AT THIS TIME VIA [facility]. TWO ATTENDANTS AND SECURITY PRESENT. PT ASSISTED TO STRETCHER X 3 ASSIST. REPORT GIVEN TO TRANSPORTING TEAM. ALL BELONGINGS AND PAPERWORK SENT WITH PT AT THIS ITME.
--- NOTE | 2019-07-10 12:05 | NUR ---
CALLED PT SPOUSE TO REVIEW DISCHARGE INFORMATION WITH HIM. STATED HE UNDERSTOOD ALL MEDICATIONS AND APPOINTMENTS.
--- NOTE | 2019-07-10 13:27 | NUR ---
Patient discharged today to home with her . Follow-up was scheduled at [facility] with Fiona Britt PA-C for psychiatry. Home health services were to resume with [facility]. Pt's behaviors improved while at [facility]. Pt continued to be confused upon discharge.
== END 2019-07-10 09:53 | disposition home or self-care (01) | DRG 883 ==
LOC: 3N 10:52
PROVIDERS: Registered Nurse; ADMIT Psychiatry & Neurology Psychiatry
DX: F63.81 Intermittent explosive disorder (principal); E44.0 Moderate protein-calorie malnutrition; F02.81 Dementia in other diseases classified elsewhere, unspecified severity, with behavioral disturbance; G20 Parkinson's disease; G30.9 Alzheimer's disease, unspecified; F33.3 Major depressive disorder, recurrent, severe with psychotic symptoms; G62.9 Polyneuropathy, unspecified; I10 Essential (primary) hypertension; E03.9 Hypothyroidism, unspecified; E55.9 Vitamin D deficiency, unspecified; G89.29 Other chronic pain; Z79.82 Long term (current) use of aspirin; Z88.8 Allergy status to other drugs, medicaments and biological substances; Z88.0 Allergy status to penicillin; Z79.899 Other long term (current) drug therapy; Z68.29 Body mass index [BMI] 29.0-29.9, adult